=== PATIENT | female | born 1990 | race Two or more races ===

== ENCOUNTER 2025-01-31 17:14 | Emergency (ER) | payer MEDICAID, OTHER ==
[~2025-01-31] VITALS: Ht 157.5 cm; Wt 105.2 kg
[2025-01-31 17:23] VITALS: BP 131/76; PULSE 96; RESP 16; TEMP 98.8; O2SAT 96
--- NOTE | 2025-01-31 17:33 | ED.PDOC ---
TURPENTINER HPI Comments 34y F who presents to the ED for chief compliant of lower pelvic pain. Pt states she is currently 27 weeks , , 1 stillborn, who states since yesterday, when she has been coughing or straining, she has felt tearing like sensation in her lower pelvic cavity. Pt states she previously had a scar from in 2012. Pt denies bleeding or any associated symptoms. Pt otherwise denies any other symptoms. Time Seen by MD: 17:25 Reviewed Notes: Medications, Allergies Allergies: Coded Allergies: NO KNOWN ALLERGIES (Unverified , 01/31/25) Information Source: Patient, Relative Mode of Arrival: Ambulatory Brought in by: mother Timing: Hours Prehospital treatment: None Severity: Moderate Vaginal Discharge: None Vaginal Lesions: None Vaginal Mass: None Onset Of Mass/Bleeding: Spontaneous Sexual Activity: Last Consensual Randall: Unknown Control: None History of: Current Blood Type: Unknown Symptoms of Possible : None Associated Signs and Symptoms: Abdominal Pain Past Medical History PAST MEDICAL HISTORY: Denies Surgical History: GANG RIDER History: Denies all GANG RIDER Hx Family History Family History: Reviewed,noncontributory to illness Social History Smoker: Non-Smoker Alcohol: Denies ETOH Use Drugs: Denies Drug Use Lives In: Home Constitutional: denies: chills, diaphoresis, fatigue, fever, malaise, sweats, weakness, others EENTM: denies: blurred vision, double vision, ear bleeding, ear discharge, ear drainage, ear pain, ear ringing, eye pain, eye redness, hearing loss, mouth pain, mouth swelling, nasal discharge, nose bleeding, nose congestion, nose pain, photophobia, tearing, throat pain, throat swelling, voice changes, others Respiratory: denies: cough, hemoptysis, orthopnea, SOB at rest, shortness of breath, SOB with excertion, stridor, wheezing, others Cardiovascular: denies: chest pain, dizzy spells, diaphoresis, Dyspnea on exertion, edema, irregular heart beat, left arm pain, lightheadedness, palpitations, PND, syncope, others Gastrointestinal: reports: abdominal pain; denies: abdomen distended, blood streaked bowels, constipated, diarrhea, dysphagia, difficulty swallowing, hematemesis, melena, nausea, poor appetite, poor fluid intake, rectal bleeding, rectal pain, vomiting, others Genitourinary: denies: abnormal vagina bleeding, burning, dyspareunia, dysuria, flank pain, frequency, hematuria, incontinence, pain, , vagina discharge, urgency, others Neurological: denies: dizziness, fainting, headache, left sided numbness, left sided weakness, numbness, paresthesia, pre-existing deficit, right sided numbness, right sided weakness, seizure, speech problems, tingling, tremors, weakness, others Musculoskeletal: denies: back pain, gout, joint pain, joint swelling, muscle pain, muscle stiffness, neck pain, others Integumetry: denies: bruises, change in color, change in hair/nails, dryness, laceration, lesions, lumps, rash, wounds, others Allergic/Immunocompromised: denies: Difficulty Healing, Frequent Infections, Hives, Itching, others Hematologic/Lymphatic: denies: anemia, blood clots, easy bleeding, easy b ruising, swollen glands, others Endocrine: denies: excessive hunger, excessive sweating, excessive thirst, excessive urination, flushing, intolerance to cold, intolerance to heat, unexplained weight gain, unexplained weight loss, others Psychiatric: denies: anxiety, bipolar disorder, depression, hopeless, panic disorder, schizophrenia, sleepless, suicidal, others All Other Systems: Reviewed and Negative Physical Exam General Appearance: Mild Distress HEENT: Normal ENT Inspection, Pharynx Normal, TMs Normal Neck: Full Range of Motion, Non-Tender, Normal, Normal Inspection Respiratory: Chest Non-Tender, Lungs Clear, No Accessory Muscle Use, No Respiratory Distress, Normal Breath Sounds Cardiovascular: No Edema, No JVD, No Murmur, No Gallop, Normal Peripheral Pulses, Regular Rate/Rhythm Breast Exam: Deferred Gastrointestinal: Non Tender, No Pulsatile Mass, Normal Bowel Sounds, Soft, Other (Gravid uterus) Genitalia: Deferred Pelvic: Deferred Rectal: Deferred Extremities: No calf tenderness, Normal capillary refill, Normal inspection, Normal range of motion, Non-tender, No pedal edema Musculoskeletal : Apperance: Normal Neurologic: Alert, business systems lead II-XII nml as Tested, No Motor Deficits, Normal Affect, Normal Mood, No Sensory Deficits Cerebellar Function: Normal Reflexes: Normal Skin: Dry, Normal Color, Warm Lymphatic: No Adenopathy Was a procedure done? Was a procedure done?: No Differential Diagnosis (GANG RIDER) Vaginal Bleeding: - Threatened, Blood Loss Anemia, Cervicitis, UTI, Other (current ) X-Ray, Labs, Meds, VS Vital Signs Date Time Temp Pulse Resp B/P (MAP) Pulse Ox O2 Delivery O2 Flow Rate FiO2 01/31/25 17:23 98.8 96 16 131/76 (94) 96 98.8 At this time the patient has been cleared from the emergency department's The patient is discharged to labor and delivery. Time of 1ST Reevaluation: 17:55 Reevaluation 1ST: Unchanged Patient Education/Counseling: Diagnosis, Treatment, Prognosis Family Education/Counseling: Diagnosis, Treatment, Prognosis Departure 1 Departure Time of Disposition: 17:42 Impression: Primary Impression: Abdominal pain in Qualified Codes: O26.899 - Other specified related conditions, unspecified trimester; R10.9 - Unspecified abdominal pain Disposition: 01 HOME / SELF CARE / HOMELESS Condition: Fair Discharged With: Self Critical Care Note Critical Care Time?: No Stability Stability form required: No Heart Score Heart Score: Heart Score Response (Comments) Value History N/A 0 EKG N/A 0 Age N/A 0 Risk Factors N/A 0 Troponin N/A 0 Total 0 I personally scribed for PIOTR REBOLLEDO MD ([email or web address]) on 01/31/25 at 17:33. Electronically submitted by Gutierrez Sánchez ([email or web address]). PIOTR REBOLLEDO MD Jan 31, 2025 17:33
--- NOTE | 2025-01-31 18:51 | DVH ---
Technique: Real-time ultrasound images through the pelvis using a transabdominal transducer. Indication: abdominal pain Comparison: None Findings: Limited ob ultrasound. This is not performed for anatomical evaluation. Single live intrauterine , heart rate of 145 beats per minute. Cephalic presentation. Cervical length of 3.4 cm. Placenta posteriorly positioned. Impression: 1. As above
--- NOTE | 2025-01-31 20:08 | DVHDS2 ---
Physician Discharge Progress N Final Diagnosis: Round ligament pain Problems List: (1) Round ligament pain (2) 27 weeks gestation of (3) Previous section Operations or Procedures: Operations or Procedures S: 34 yo , IUP @ 27.3 wks present to OB Triage with lower abdominal pain around past incision. Pt describes the pain as a tearing sensation when she sneezes or gets up from the sitting position. Pt denies VB, LOF, UCs. Endorses +FM. Pt reports history of full-term stillborn delivery due to placental abruption in 2022. NSVDx1 and C/Sx2. PNC in [place] with Dr Hugo Holland, per pt, is uncomplicated this far. Next appt with Dr Hugo Holland is on 02/06/25. Pt recently moved here and wants to transfer care to [facility]. O: VSS NST reactive [place]: no UCs noted. A: 34 yo , IUP @ 27.3 wks Round ligament pain previous c/s x2 P: D/C home f/u with primary OB as scheduled on 02/06/25 [facility] OB office flyer given. Recommended belly band for abdominal support. Discussed proper body mechanics when sitting up from a lying and getting up from sitting positions. FKC at 28 wks/PTL precautions reviewed Dr. Nagel consulted, agrees with POC. Other Interventions Other Interventions [place] [id number] Ph: [phone] DIAGNOSTIC IMAGING Diagnostic Imaging Report : [id number] Signed PATIENT: ANUSHKA PERRYACCT: [id number] UNIT: [id number] : 1990 LOC: [facility] ROOM / BED: TRIAGE1 / A AGE / SEX: 34 / F ADM STATUS: ADM IN SERVICE [id number] ORDERING PHYSICIAN: LATANYA BOWMAN CNM PROCEDURE(s): OBLTD - OBSTERICAL LIMITED REASON: abdominal pain ORDER NUMBER(s): [id number], ACCESSION NUMBER(s): [id number] Technique: Real-time ultrasound images through the pelvis using a transabdominal transducer. Indication: abdominal pain Comparison: None Findings: Limited ob ultrasound. This is not performed for anatomical evaluation. Single live intrauterine , heart rate of 145 beats per minute. Cephalic presentation. Cervical length of 3.4 cm. Placenta posteriorly positioned. Impression: 1. As above ATED BY: AIRAM ROCA MD DICTATED DATE/TIME: 01/31/251847 SIGNED BY: AIRAM ROCA MD SIGNED DATE/TIME: 01/31/251847 CC: Condition on Discharge: Stable Disposition: Home Discharge Instructions: Diet: Regular Activity: No Restrictions, As Tolerated Follow Up/Referral: [facility] for any concerns/complaint, and follow up with primary Ob BING. Medications: Continue all prescription medications exactly as prescribed Follow Up Care: Specialist: f/u with primary OB as scheduled on 02/06/25 Discharge Statement: "Patient was advised to return to the ER or call 911 if any headaches, dizziness, shortness of breath, chest pain, abdominal pain, bleeding, fevers, or worsening of medical condition. Patient was counseled about treatment plan, medications, possible side effects, patientverbalized understanding. All questions were answered to the best of my ability. This discharge took greater then 30 minutes in planning, reviewing docum entation, counseling the patient, and discussing with other team members." Visit Coding OBGYN Date of Service: Jan 31, 2025 Billing Provider: LATANYA OBWMAN CNM LEASING COORDINATOR Common Visit Codes: 98354-FVWGAJI OBS CARE (HIGH) LEASING COORDINATOR Procedure Codes: 23790-81- NON-STRESS TEST NICKI ACE STUDENTJAKE Jan 31, 2025 20:08
== END 2025-01-31 19:05 | disposition home or self-care (01) ==
LOC: ER 17:20 → LDRP 17:23
PROVIDERS: ADMIT Obstetrics & Gynecology; ATTEND Obstetrics & Gynecology
DX: O26.892 Other specified pregnancy related conditions, second trimester (principal); R10.2 Pelvic and perineal pain; R05.9 Cough, unspecified; Z3A.27 27 weeks gestation of pregnancy; Z98.891 History of uterine scar from previous surgery
CPT/HCPCS: 76815; 81002; 99284; G0378